=== PATIENT | female | born 1960 | race Caucasian/White ===

== ENCOUNTER 2023-04-10 18:44 | Emergency (ER) | payer MEDICARE, OTHER ==
[~2023-04-10] VITALS: Ht 170 cm; Wt 80.7 kg
--- NOTE | 2023-04-10 19:38 | ED Lower Extremity ---
General Chief Complaint: Lower Extremity Stated Complaint: RT KNEE INJ - FALL Nursing Triage Note: PT AMB TO TRIAGE RM WITH CC OF RIGHT JOSE PAIN AFTER SHE FELL GOING UP THE STAIRS. PTS LEG APPEARS SWOLLEN. Source: patient Exam Limitations: no limitations History of Present Illness Date Seen by Provider: Apr 10, 2023 Time Seen by Provider: 19:26 Initial Comments 62-year-old female presents to the ER for right lower leg/knee pain. At around 3:30 or 4 PM she fell going up the steps. She landed on her jose. She denies hitting her head. Reports that she falls frequently due to her MS. She does not take any blood thinners. Other past medical history includes diabetes. Allergies and Home Medications Patient Home Medication List Home Medication List Reviewed: Yes Review of Systems Constitutional: see HPI Past Ldenqlg-Qfqlrm-Tdfdid Hx Patient Social History Tobacco Use?: No Substance use?: No Alcohol Use?: No Physical Exam Vital Signs Vital Signs - First Documented 04/10/23 19:15 Temp 36.1 Pulse 60 B/P (MAP) 164/82 (109) Pulse Ox 97 O2 Delivery Room Air Capillary Refill : Height, Weight, BMI Height: '" Weight: lbs. oz. kg; 27.00 BMI Method: General Appearance: WD/WN, no apparent distress Neck: supple, normal inspection Cardiovascular: regular rate, rhythm Respiratory: lungs clear, normal breath sounds, no respiratory distress, no accessory muscle use Legs: right leg bone tenderness, right leg pain, right leg soft tissue tenderness, right leg swelling Feet: right foot other (Sensation intact distally, pulses intact) Neurologic/Psychiatric: alert, normal mood/affect Skin: normal color, warm/dry Progress/Results/Core Measures Results/Orders My Orders Orders - BREE,HENRIQUE R [employer] Tibia/Fibula, Right, 2 Views (04/10/23 19:26) Knee, Right, 3 Views (04/10/23 19:26) Vital Signs/I&O 04/10/23 04/10/23 19:15 20:27 Temp 36.1 Pulse 60 60 B/P (MAP) 164/82 (109) 145/86 Pulse Ox 97 99 O2 Delivery Room Air Room Air Blood Pressure Mean: 109 Progress Progress Note : Progress Note Patient seen and evaluated, resting comfortably in recliner, no acute distress. Based on exam and symptoms, x-ray of right knee and tib-fib ordered. X-rays reviewed. Negative for acute fracture. Knee x-ray shows minimal chondrocalcinosis. Results discussed with patient. Patient instructed to apply ice to the area, and to elevate her leg. Discharge instructions and return p recautions provided. Diagnostic Imaging Diagonstic Imaging: Xray Plain Films/CT/US/NM/MRI: knee Comments [facility] [place], [place] NAME: JAIRO MCGILL [facility] REC#: [id number] PT STATUS: DEP ER : 1960 PHYSICIAN: HENRIQUE GIRON APRN ADMIT DATE: 04/10/23/ER Signed Date of Exam:04/10/23 KNEE, RIGHT, 3 VIEWS Indication: Right knee pain post fall The AP, oblique, and lateral views of the right knee are obtained. No fracture or acute bony abnormality seen. Joint spaces are unremarkable except for minimal chondrocalcinosis. Impression: Minimal chondrocalcinosis. No acute bone abnormality of the right knee. Dictated by: Dictated on workstation # [id number] Dict: 04/10/231957 Trans: 04/10/232033 CVB [id number] Interpreted by: JAXON LUONG MD Electronically signed by: JAXON LUONG MD 04/10/232033 Diagonstic Imaging: Xray Plain Films/CT/US/NM/MRI: leg Comments [facility] [place] NAME: JAIRO MCGILL [facility] REC#: [id number] PT STATUS: DEP ER : 1960 PHYSICIAN: HENRIQUE GIRON APRN ADMIT DATE: 04/10/23/ER Signed Date of Exam:04/10/23 TIBIA/FIBULA, RIGHT, 2 VIEWS Indication: Right jose pain post fall. AP and lateral views of the right tibia and fibula are obtained. No fracture or acute bony abnormality seen. Impression: Negative right tibia and fibula. Dictated by: Dictated on workstation # [id number] Dict: 04/10/231957 Trans: 04/10/232033 CV [id number] Interpreted by: JAXON LUONG MD Electronically signed by: JAXON LUONG MD 04/10/232033 Departure Impression Primary Impression: Chondrocalcinosis Additional Impression: Hematoma Disposition: 01 HOME, SELF-CARE Condition: Stable Departure-Patient Inst. Decision time for Depature: 20:19 Referrals: LAUREN MARTINEZ (PCP/Family) Primary Care Physician Patient Instructions: HEMATOMA Add. Discharge Instructions: Ice the area for 20 minutes at a time several times a day for the next couple days. Elevate your leg above the level of your heart to help reduce swelling. You can expect the area to turn purple and green before it fades and you may have bruising below the area of the injury. Follow-up with your primary care provider. Return for any new, concerning, or worsening symptoms. All discharge instructions reviewed with patient and/or family. Voiced understanding. HENRIQUE GIRON APRN Apr 10, 2023 19:38
--- NOTE | 2023-04-10 20:10 | Diagnostic Imaging Report ---
Indication: Right knee pain post fall The AP, oblique, and lateral views of the right knee are obtained. No fracture or acute bony abnormality seen. Joint spaces are unremarkable except for minimal chondrocalcinosis. Impression: Minimal chondrocalcinosis. No acute bone abnormality of the right knee. Dictated by: Dictated on workstation # [id number]
--- NOTE | 2023-04-10 20:13 | Diagnostic Imaging Report ---
Indication: Right jose pain post fall. AP and lateral views of the right tibia and fibula are obtained. No fracture or acute bony abnormality seen. Impression: Negative right tibia and fibula. Dictated by: Dictated on workstation # [id number]
[2023-04-10 20:27] VITALS: BP 145/86
== END 2023-04-10 20:26 | disposition home or self-care (01) ==
LOC: EDUNIT# 18:44 → ER 18:48
DX: S80.01XA Contusion of right knee, initial encounter (principal); M11.261 Other chondrocalcinosis, right knee; W10.8XXA Fall (on) (from) other stairs and steps, initial encounter
CPT/HCPCS: 73562; 73590